=== PATIENT | male | born 1960 ===

== ENCOUNTER → 2021-11-03 08:56 | Outpatient (CLI) | payer OTHER, SELFPAY ==
--- NOTE | ~2021-11-03 | MR_ITS ---
EXAMINATION: MR knee RT wo con DATE: 11/03/2021 09:32 INDICATION: Chronic right knee pain TECHNIQUE: Magnetic resonance imaging (MRI) of the right knee was performed without intravenous contr ast. Sequences included coronal PD-weighted FSE, coronal PD-weighted FS FSE, sagittal T2-weighted FS E, sagittal PD-weighted FS FSE and axial PD weighted fat saturated FSE. COMPARISON: None. FINDINGS: Medial compartment: Longitudinal and medial meniscal tear beginning in the horizontal plane extending to the inferior art icular surface near the free edge of the posterior horn transitioning to a more vertically oriented o blique tear plane extending to the inferior articular surface and the peripheral third of the body of the medial meniscus. There is mild subluxation of the small portion of the meniscal body peripheral/ inferior to the tear plane into the inferior gutter beyond the medial rim of the medial tibial platea u. There is full/near full-thickness chondral ulceration at the anterior weightbearing medial femoral condyle which measures approximately 2.3 cm AP by 1.1 cm medial to lateral. Additional deep chondral fissure at the posterior weightbearing medial femoral condyle. Partial-thickness chondral fissure at the anterior aspect of the medial tibial plateau. Small marginal osteophytes and mild subarticular e ti-like signal change along the medial and posterior rim of the medial tibial plateau. Lateral compartment: Lateral meniscus is normal. Flat central subchondral osteophyte measuring 1.5 cm AP and 8 mm medial c ollateral at the site of a deep chondral ulceration at the central weightbearing lateral femoral cond yle. The osteophyte does not project beyond the level of the surrounding chondral surface. Deep chond ral fissuring with additional mild underlying cortical irregularity and minimal edema-like marrow sig nal change at the posterior most weightbearing lateral femoral condyle. Normal cartilage along the la teral tibial plateau. Patellofemoral compartment: Deep chondral fissure without degenerative subchondral changes at the central aspect of the medial pa tellar facet. Small deep chondral ulceration and fissuring at the cephalad half of the trochlear groo ve with mild underlying edema-like signal change. Ligaments and tendons: Anterior and posterior cruciate ligaments are normal. The fibular collateral ligament complex is norm al. The superficial medial collateral ligament is normal. There is thickening and mild increased sign al of the deeper meniscal femoral component of the ligament without significant surrounding edema con sistent with likely scarring related to chronic sprain. Severe patellar tendinopathy with prominent h ypertrophic osteophytes and very mild partial-thickness tear at the anterior tibial tuberosity insert ion of the distal patellar tendon. Additional mild tendinopathy and small amount of enthesopathic oss ification at the patellar insertion of the distal quadriceps tendon. Mild tendinopathy of the distal semimembranosus tendon without discrete tear. The remaining visualized medial and lateral hamstring t endons as well as the iliotibial band are normal. Fluid: Moderate-sized right knee joint effusion with associated mild to moderate scattered synovitis most pr ominent along the posterior margin of Hoffa's fat pad and at the posterior recess. No intra-articular loose osteochondral bodies identified. This body is seen within a moderate-sized multilobulated Bake r's cyst. Additional multilobulated ganglion cyst which extends caudally deep to the pes anserinus. T here is subcutaneous edema posterior to the proximal calf with additional soft tissue edema extending caudally along the superficial muscular fascia of the medial head of the gastrocnemius muscle caudal to the Parmar's cyst and which suggests the possibility of cyst rupture with extravasation. The muscu lar edema along the
== END ==
PROVIDERS: PCP Nurse Practitioner Family; Visit Provider Orthopaedic Surgery
DX: S83.241A Other tear of medial meniscus, current injury, right knee, initial encounter (principal); X58.XXXA Exposure to other specified factors, initial encounter; M17.11 Unilateral primary osteoarthritis, right knee; M25.461 Effusion, right knee
CPT/HCPCS: 73721